=== PATIENT | male | born 1980 | race African-American/Black ===

== ENCOUNTER 2016-09-07 09:24 | Emergency (ER) | payer OTHER ==
[~2016-09-07] VITALS: Ht 188 cm; Wt 127.0 kg
[~2016-09-07 09:24] MED LIST: ALEVE220 MG PO; ENDOCET 325 MG-1 TA1 PO; FLEXERIL10 MG PO; FLOMAX(MONOGRA0.4 MG PO; KEFLEX500 MG PO; MEDROL DOSEPAK1 PAC PO; MOBIC15 M1 PO; MOTRIN800 MG PO; NAPROXEN500 MG PO; PERCOCET 325 MG1 TA2 PO; PROAIR HFA0.09 MG/Ac INH; ROBITUSSIN W/CO10 ML PO; TORADOL10 MG PO; TRAMADOL50 MG PO
--- NOTE | 2016-09-07 10:46 | ED INFLUENZA/URI COMPLAINT ---
History of Present Illness General Chief Complaint: General Adult Stated Complaint: BACK PAIN AND SORE THROAT Source: patient Exam Limitations: no limitations Vital Signs & Intake/Output Vital Signs & Intake/Output Vital Signs Date Time Temp Pulse Resp B/P Pulse O2 O2 Flow FiO2 Ox Delivery Rate 09/07 1130 Room Air Room Air 09/07 1129 96.5 73 18 177/95 98 09/07 1116 98 ED Intake and Output 09/08 0000 09/07 1200 Intake Total 0 Output Total Balance 0 Intake, Oral 0 Patient 280 lb Weight Allergies Coded Allergies: NO KNOWN ALLERGIES (07/30/15) Reconcile Medications Albuterol Sulfate (Proair Hfa) 90 MCG HFA.AER.AD 2 PUF INH Q4-6 PRN PRN DYSPNEA DISPENSE WITH SPACER Azithromycin (Zithromax) 250 MG TABLET 1 DP PO AD BRONCHITIS 2 the first day followed by 1 for days 2-5 Methylprednisolone. (Medrol) 4 MG TAB.DS.PK 1 DP PO AD INFLAMMATION 6 on day 1 then reduce by one tablet daily until gone Triage Note: 36 Y/O MALE C/O LOW BACK AND URI SYMPTOMS. STATES HE WAS GOING TO PAIN MANAGEMENT BUT HAS TO WAIT UNTIL HIS NEW MEDICAL [employer]IJ[employer] CARD COMES IN THE MAIL TO RETURN TO PAIN MANAGEMENT. ALSO C/O CHEST CONGESTION AND RUNNY NOSE - "I THINK I HAVE BRONCHITIS" Triage Nurses Notes Reviewed? yes Onset: Gradual Duration: day(s): (few) Timing: recent history Severity: mild, moderate No Modifying Factors: none Associated Symptoms: cough, fever/chills, nasal congestion, shortness of breath, sore throat, back HPI: 36 male presents with cough, sore throat, back pain, and fever/chills x few days. Active smoker. No sick contacts of travel. Denies abdominal pain, urinary symptoms. Past History Travel History Traveled to [place] past 21 day No Medical History Any Pertinent Medical History? see below for history Neurological: migraine EENT: NONE Cardiovascular: NONE Respiratory: NONE Gastrointestinal: NONE Hepatic: NONE Renal: nephrolithiasis Musculoskeletal: chronic back pain Psychiatric: NONE Endocrine: NONE Blood Disorders: NONE Cancer(s): NONE TILE INSTALLER/Reproductive: NONE Surgical History Surgical History: N Psychosocial History Who do you live with Spouse Services at Home None What is your primary language Albanian Tobacco Use: Current Daily Use Daily Tobacco Use Amount/Type: => 5 Cigarettes daily Family History Family History, If Any: GRANDMOTHER Relation not specified for: Pacemaker Hx Contributory? No Review of Systems Review of Systems Constitutional: Reports: chills, fever. EENTM: Reports: no symptoms. Respiratory: Reports: cough, short of breath, sputum production. Cardiovascular: Denies: chest pain, palpitations. GI: Reports: no symptoms. Genitourinary: Reports: no symptoms. Musculoskeletal: Reports: back pain. Skin: Reports: no symptoms. Neurological/Psychological: Reports: no symptoms. Hematologic/Endocrine: Denies: bruising, bleeding, polyuria, polydipsia. Immunologic/Allergic: Denies: splenectomy. All Other Systems: Reviewed and Negative Physical Exam Physical Exam General Appearance: well developed/nourished, alert, awake Head: atraumatic, normal appearance Eyes: Bilateral: normal appearance, PERRL, EOMI. Ears, Nose, Throat: normal ENT inspection, hearing grossly normal, Tympanic normal, pharynx normal Neck: normal inspection, supple, full range of motion Respiratory: decreased breath sounds, wheezing, respiratory distress Cardiovascular: edema Peripheral Pulses: 2+ radial (R), 2+ radial (L) Gastrointestinal: normal bowel sounds, soft, non-tender Extremities: normal inspection, normal capillary refill, normal range of motion, no edema Neurologic/Psych: no motor/sensory deficits, awake, alert, oriented x 3 Skin: intact, normal color, warm/dry Core Measures Severe Sepsis Present: No Septic Shock Present: No Progress Differential Diagnosis: pneumonia, BRONCHITIS Plan of Care: Orders Procedure Date/time Status RT ED ORDERS 09/08 1047 Complete Diagnostic Imaging: Viewed by Me: Radiology Read. Discussed w/RAD: Radiology Read. Initial ED EKG: none Comments: PATIENT: JACQUELYN BRUNER PRESENT AGE: 36 PATIENT ACCOUNT NO: [id number] : 82 LOCATION: [facility] ORDERING PHYSICIAN: NITA NASH MD SERVICE DATE: 09/07/16 EXAM TYPE: RAD - XRY-CHEST XRAY, PA AND LATERAL EXAMINATION: XR CHEST CLINICAL INFORMATION: Cough, purulent sputum. Dyspnea. COMPARISON: None TECHNIQUE: 2 views of the chest were obtained. FINDINGS: The lungs are well expanded. Bronchial wall thickening noted. There is no focal consolidation, edema, or effusion. No pneumothorax. The cardiomediastinal silhouette is within normal limits. No acute osseous abnormality. IMPRESSION: No dense consolidation. Bronchial wall thickening can be seen with a small airways process such as asthma or atypical/viral infection. DICTATED BY: OPHELIA THACKER MD DATE/TIME DICTATED:09/07/161106 [employer]NOLOGY INSTRUCTOR:DILLAN DATE/TIME TRANSCRIBED:09/07/161106 CONFIDENTIAL, DO NOT COPY WITHOUT APPROPRIATE AUTHORIZATION. <Electronically signed in Other Vendor System> SIGNED BY: OPHELIA THACKER MD 09/07 1111 Departure Departure Time of Disposition: 111 Disposition: HOME OR SELF CARE Condition: Stable Clinical Impression Primary Impression: Bronchitis Secondary Impressions: Tobacco abuse Referrals: CARMELA LILLY MD (PCP/Family) Additional Instructions: Take the azithromycin, Medrol Dosepak and use inhaler as directed. Please stop smoking as we discussed. Follow up with primary care doctor. Return as needed. Departure Forms: Customer Survey General Discharge Information Prescriptions: Current Visit Scripts Albuterol Sulfate (Proair Hfa) 2 PUF INH Q4-6 PRN PRN DYSPNEA #1 INHAL DISPENSE WITH SPACER Methylprednisolone. (Medrol) 1 DP PO AD #1 DP 6 on day 1 then reduce by one tablet daily until gone Azithromycin (Zithromax) 1 DP PO AD #6 TAB 2 the first day followed by 1 for days 2-5
--- NOTE | 2016-09-07 11:11 | RADIOLOGY REPORT ---
EXAMINATION: XR CHEST CLINICAL INFORMATION: Cough, purulent sputum. Dyspnea. COMPARISON: None TECHNIQUE: 2 views of the chest were obtained. FINDINGS: The lungs are well expanded. Bronchial wall thickening noted. There is no focal consolidation, edema, or effusion. No pneumothorax. The cardiomediastinal silhouette is within normal limits. No acute osseous abnormality. IMPRESSION: No dense consolidation. Bronchial wall thickening can be seen with a small airways process such as asthma or atypical/viral infection.
[2016-09-07] MEDS ORDERED: MEDROL4 M2 PO (11:20)
[2016-09-07] MEDS ORDERED: ZITHROMAX250 M2 PO (11:20)
[2016-09-07] MEDS ORDERED: PROAIR HFA8.5 GM INH (11:20)
[2016-09-07 11:29] VITALS: BP 177/95
== END 2016-09-07 11:37 ==
LOC: ERH 09:24
DX: J40 Bronchitis, not specified as acute or chronic (principal); Z72.0 Tobacco use
CPT/HCPCS: 1263; 96372; J1885